=== PATIENT | female | born 1995 | race American Indian/Alaskan Native ===

== ENCOUNTER 2018-02-28 11:41 | Outpatient (CLI) | payer MEDICAID ==
[2018-02-28 13:52] VITALS: BP 121/78
== END 2018-02-28 13:35 | disposition home or self-care (01) ==
LOC: TRG 11:41
PROVIDERS: ATTEND Obstetrics & Gynecology
DX: O47.03 False labor before 37 completed weeks of gestation, third trimester (principal); Z3A.37 37 weeks gestation of pregnancy
CPT/HCPCS: 59025

== ENCOUNTER 2018-02-28 22:59 | Outpatient (CLI) | payer MEDICAID ==
[2018-02-28 23:20] VITALS: BP 122/79
== END 2018-03-01 00:30 | disposition home or self-care (01) ==
LOC: TRG 22:59
PROVIDERS: ATTEND Obstetrics & Gynecology
DX: O47.1 False labor at or after 37 completed weeks of gestation (principal); Z3A.38 38 weeks gestation of pregnancy

== ENCOUNTER 2018-03-11 04:38 | Inpatient (IN) | payer MEDICAID ==
--- NOTE | 2018-03-11 08:17 | Ultrasound Report ---
ULTRASOUND BIOPHYSICAL PROFILE: History: Leaking fluid Technique: Transabdominal ultrasound with Doppler interrogation. 2 - breathing movements 2 - movements 2 - posture and tone 2 - Qualitative amniotic fluid volume 8 - TOTAL SCORE OF POSSIBLE 8 Heart Rate (bpm) 144
--- NOTE | 2018-03-11 08:18 | Ultrasound Report ---
ULTRASOUND OB LIMITED History: Leaking fluid Technique: Transabdominal ultrasound with Doppler interrogation. Gestation: Single Position: Cephalic Amniotic Fluid: Decreased LUIS MANUEL = 5.4 cm Heart Rate: 144 BPM
[2018-03-11] MEDS ORDERED: LACTATED RINGERS 1,000 ML ONE (09:54)
[2018-03-11] MEDS ORDERED: PHENERGAN PO PRN ×2 (10:03→23:34)
[2018-03-11] MEDS ORDERED: BRETHINE IVP PRN (10:03)
[2018-03-11] MEDS ORDERED: ZOFRAN IV PRN ×2 (10:03→23:34)
[2018-03-11] MEDS ORDERED: SUBLIMAZE IV PRN (10:03)
[2018-03-11] MEDS ORDERED: STADOL IV PRN (10:03)
[2018-03-11] MEDS ORDERED: NARCAN 0.4 MG/1 ML IV PRN (10:03)
[2018-03-11] MEDS ORDERED: XYLOCAINE 2% INFILTRATI ONE (10:03)
[2018-03-11] MEDS ORDERED: BRETHINE SUB-Q PRN (10:03)
[2018-03-11] MEDS ORDERED: MINERAL OIL PO PRN (10:03)
[2018-03-11 10:37] LABS: Hematocrit 31.5 % (30.3-42.9); Hemoglobin 10.1 gm/dl (10.1-14.3); Mean Corpuscular HGB Conc 32 % (30-34); Mean Corpuscular Volume 80 fl (79-97); Platelet Count 322 K/mm3 (140-440); Red Blood Count 3.93 M/mm3 (3.65-5.03); Red Cell Distribution Width 14.1 % (13.2-15.2)
[2018-03-11 10:41] LABS: Mean Corpuscular Hemoglobin 26 pg (28-32)
[2018-03-11] MEDS ORDERED: PITOCin/NS 20 UNIT/1000ML DRIP 20 UNITS/1,000 ML BAG IV SCH ×2 (11:00→23:45)
[2018-03-11] MEDS ORDERED: PITOCin/NS 30 UNIT/500ML 30 UNITS/500 ML BAG IV SCH ×2 (11:00)
[2018-03-11] MEDS ORDERED: LACTATED RINGERS 1,000 ML IV SCH (11:00)
--- NOTE | 2018-03-11 11:56 | History and Physical Report ---
History of Present Illness Date of examination: 03/11/18 Date of admission: 03/11/18 04:39 Chief complaint: I broke my water History of present illness: THis is a 22 yo transfer to [facility] at 31 weeks here for leaking of fluid. Christin had US showing LUIS MANUEL . Patient started julai and changed cervix from 1 to 3cm. Admit to labor and delivery for augmentation. SHe has iron deficient anemia on iron. GBS neg Past History Past Medical History: no pertinent history Past Surgical History: no surgical history Family/Genetic History: none - Obstetrical History Expected Date of Delivery: 03/15/18 Actual Gestation: 39 Week(s) 3 Day(s) : 0 Para: 0 Hx # Term Pregnancies: 0 Number of Pregnancies: 0 Spontaneous Abortions: 0 Induced : 0 Number of Living Children: 0 Medications and Allergies Allergies Allergy/AdvReac Type Severity Reaction Status Date / Time No Known Allergies Allergy Unverified 02/28/18 13:38 Home Medications Medication Instructions Recorded Confirmed Last Taken Type Ferrous Sulfate [Iron] 325 mg PO BID 02/28/18 02/28/18 1 Day Ago History ~02/27/18 Active Meds: Active Medications Butorphanol Tartrate (Stadol) 2 mg IV Q2H PRN PRN Reason: Pain , Severe (7-10) Ephedrine Sulfate (Ephedrine Sulfate) 10 mg IV Q2M PRN PRN Reason: Hypotension Fentanyl (Sublimaze) 100 mcg IV Q2H PRN PRN Reason: Labor Pain Lactated Ringer's (Lactated Ringers) 1,000 mls @ 125 mls/hr IV DIRECT JOE Oxytocin/Sodium Chloride (Pitocin/Ns 20 Unit/1000ml Drip) 20 units in 1,000 mls @ 125 mls/hr IV DIRECT JOE Oxytocin/Sodium Chloride (Pitocin/Ns 30 Unit/500ml) 30 units in 500 mls @ 1 mls /hr IV TITR JOE; Protocol Oxytocin/Sodium Chloride (Pitocin/Ns 30 Unit/500ml) 30 units in 500 mls @ 0 mls /hr IV TITR JOE; Protocol Mineral Oil (Mineral Oil) 30 ml PO QHS PRN PRN Reason: Constipation Naloxone HCl (Narcan 0.4 Mg/1 Ml) 0.1 mg IV Q2MIN PRN PRN Reason: Res Rate </= 8 or 02 SAT < 92% Ondansetron HCl (Zofran) 4 mg IV Q8H PRN PRN Reason: Nausea And Vomiting Promethazine HCl (Phenergan) 25 mg PO Q6H PRN PRN Reason: Nausea And Vomiting Terbutaline Sulfate (Brethine) 0.25 mg SUB-Q ONCE PRN PRN Reason: Hyperstimulation/Hypertonicity Terbutaline Sulfate (Brethine) 0.25 mg IVP ONCE PRN PRN Reason: Hyperstimulation/Hypertonicity Review of Systems All systems: negative - Vital Signs Vital signs: Vital Signs Temp Pulse Resp BP 98.7 F 103 H 18 123/82 03/11/18 05:38 03/11/18 05:38 03/11/18 05:38 03/11/18 05:38 Temp Pulse Resp BP Pulse Ox 98.1 F 103 H 18 106/70 03/11/18 09:21 03/11/18 09:21 03/11/18 09:21 03/11/18 09:21 - Physical Exam Breasts: Positive: normal Cardiovascular: Regular rate, Normal S1 Lungs: Positive: Clear to auscultation, Normal air movement Abdomen: Positive: normal appearance, soft, normal bowel sounds. Negative: distention, tenderness, guarding Genitourinary (Female): Positive: normal external genitalia, normal perenium Vulva: both: normal Uterus: Positive: normal size Anus/Rectum: Positive: normal perianal skin Extremities: Positive: normal Deep Tendon Reflex Grade: Normal +2 - Obstetrical FHR: category 1 Cervical Dilatation: 3 Cervical Effacement Percentage: 50 station: -3 Results Result Diagrams: 03/11/18 09:30 Abnormal lab results 03/11/18 Range/Units 09:30 WBC 14.5 H (4.5-11.0) K/mm3 MCH 26 L (28-32) pg All other labs normal. Assessment and Plan A/P HD 1 Term IUP 39+ weeks SROM clear augment with pitocin GBS neg expect vaginal delivery
--- NOTE | 2018-03-11 13:25 | Event Note ---
Date: 03/11/18 Patient doing well Feeling ctx NST reactive cat 1 /-2 continue high dose pitocin wait epidural continue present mgt
[2018-03-11] MEDS ORDERED: NARCAN 2 MG/2 ML IV PRN (14:39)
--- NOTE | 2018-03-11 14:39 | Anesthesia Consultation ---
Anesthesia Consult and Med Hx Date of service: 03/11/18 - Airway Anesthetic Teeth Evaluation: Good ROM Head & Neck: Adequate Mental/Hyoid Distance: Adequate Mallampati Class: Class II Intubation Access Assessment: Probably Good - Pre-Operative Health Status ASA Pre-Surgery Classification: ASA2 Proposed Anesthetic Plan: Epidural, Spinal - Pulmonary Hx Asthma: No COPD: No Hx Pneumonia: No - Cardiovascular System Hx Hypertension: No - Central Nervous System Hx Seizures: No Hx Psychiatric Problems: No - Endocrine Hx Renal Disease: No Hx End Stage Renal Disease: No Hx Hypothyroidism: No Hx Hyperthyroidism: No - Hematic Hx Anemia: No Hx Sickle Cell Disease: No - Other Systems Hx Alcohol Use: No
[2018-03-11] MEDS ORDERED: fentaNYL-BUPIV 2 MCG/ML-0.125% 200 MCG/100 ML BAG EPIDURAL SCH (15:00)
--- NOTE | 2018-03-11 16:57 | Event Note ---
Date: 03/11/18 patient is s/p epidural patient doing well and comfortable NST cat 1 SVE: /-1 A/P Active labor GBS neg s/p epidural continue pitocin for augmentation
[2018-03-11] MEDS ORDERED: WATER FOR INJ (PF) 10 ML ONE (18:31)
[2018-03-11] MEDS ORDERED: MARCAINE 0.5% INFILTRATI ONE (18:31)
[2018-03-11] MEDS: GARAMYCIN/NS 80 MG/100 ML 100 ML IV SCH (22:45)
[2018-03-11] MEDS ORDERED: GARAMYCIN/NS 80 MG/100 ML 100 ML IV ONE (22:50)
[2018-03-11] MEDS ORDERED: POLYCILLIN/NS 2 GM/100 ML 2 GM/100 ML BAG IV SCH (23:00)
[2018-03-11] MEDS ORDERED: XYLOCAINE MPF 2% ONE (23:11)
[2018-03-11] MEDS ORDERED: CYTOTEC ONE (23:15)
[2018-03-11] MEDS ORDERED: PERCOCET 5/325 PO PRN (23:34)
[2018-03-11] MEDS ORDERED: LANSINOH TP PRN (23:34)
[2018-03-11] MEDS ORDERED: MILK OF MAGNESIA PO PRN (23:34)
[2018-03-11] MEDS ORDERED: PHENERGAN PR PRN (23:34)
[2018-03-11] MEDS ORDERED: TUCKS PAD TP PRN (23:34)
[2018-03-11] MEDS ORDERED: DULCOLAX PR PRN (23:34)
[2018-03-11] MEDS ORDERED: TYLENOL PO PRN (23:34)
[2018-03-11] MEDS ORDERED: NORCO 5/325 PO PRN (23:34)
[2018-03-11] MEDS ORDERED: CYTOTEC PR ONE (23:34)
[2018-03-11] MEDS ORDERED: BENADRYL PO PRN (23:34)
--- NOTE | 2018-03-11 23:34 | Procedure Note ---
OB Delivery Note - Delivery Date of Delivery: 03/11/18 Surgeon: MASOUD NETTLES Estimated blood loss: other (600cc) - Vaginal Delivery presentation: vertex Delivery position: OA Intrapartum events: febrile- temp >100.3, meconium Delivery induction: none Delivery augmentation: rupture of membranes, pitocin Delivery monitor: internal FHT, internal uterine Route of delivery: Delivery placenta: spontaneous Delivery cord: 3 umbilical vessels Episiotomy: none Delivery laceration: 2nd degree Delivery repair: vicryl Anesthesia: local, epidural Delivery comments: Patient was noted to be tachy and temp 101 so patient was started on Amp and Gent. patient was noted to be anterior lip. i was able to reduce lip and proceeded to pushing a viable female infant at 2305 with Apgars 8 and 9. Weight of the baby was 8 pounds 4 ounces. The cord was clamped and cut and placenta delivered intact with 3 vessel cord at 2310. Patient sustained a 2nd degree laceration repaired in usual fashion with 2-0 vicryl. Cytotec 1000 ug of cytotec for PP hemorrhage of 600 cc. Patient tolerated procedure well and bonding with baby. - Infant A at 1 minute: 8 at 5 minutes: 9 Gender: Female
[2018-03-11] MEDS ORDERED: SODIUM CHLORIDE FLUSH SYRINGE 10 ML IV PRN (23:45)
[2018-03-12] MEDS: MOTRIN PO SCH ×3 (00:22→20:04)
[2018-03-12] MEDS: CLEOCIN 900 MG/50 mL 900 MG/50 ML BAG IV SCH ×3 (00:48→22:18)
[2018-03-12] MEDS ORDERED: NACL 0.9% 1000 ML 1,000 ML IV SCH (05:00)
[2018-03-12] MEDS: POLYCILLIN/NS 2 GM/100 ML 2 GM/100 ML BAG IV SCH ×3 (05:00→17:00)
[2018-03-12] MEDS: GARAMYCIN/NS 80 MG/100 ML 100 ML IV SCH ×3 (05:55→23:52)
[2018-03-12] MEDS: COLACE PO SCH (10:10)
[2018-03-12] MEDS: PRENATAL VITAMIN PO SCH (10:11)
[2018-03-12] MEDS: SENOKOT S PO SCH (10:15)
--- NOTE | 2018-03-12 12:48 | Progress Note ---
Assessment and Plan - Patient Problems (1) Spontaneous vaginal delivery Current Visit: Yes Status: Acute Plan to address problem: Routine care Subjective - Subjective Date of service: 03/12/18 Interval history: Patient without complaints. She is tolerating a regular diet without complication. Patient reports: appetite normal, voiding normally, pain well controlled Objective - Vital Signs Latest vital signs: Vital Signs Temp Pulse Resp BP BP Pulse Ox 03/12/18 07:43 98.4 F 94 H 20 114/72 96 03/12/18 05:26 98.1 F 104 H 18 114/63 03/12/18 01:25 100.9 F H 98 H 20 123/81 98 03/12/18 01:00 99.8 F H 20 03/12/18 00:54 117 H 97 03/12/18 00:49 116 H 97 03/12/18 00:47 142 H 97/54 03/11/18 23:44 120 H 99 03/11/18 23:42 121 H 133/85 03/11/18 23:26 126 H 121/60 03/11/18 23:13 151 H 129/58 03/11/18 23:02 155 H 92 03/11/18 22:57 59 L 88 03/11/18 22:56 96 H 87 03/11/18 22:52 140 H 98 03/11/18 22:47 102 H 97 03/11/18 22:42 121 H 136/68 99 03/11/18 22:37 112 H 99 03/11/18 22:33 116 H 94 03/11/18 22:32 122 H 95 03/11/18 22:28 118 H 109/63 03/11/18 22:27 117 H 99 03/11/18 22:22 118 H 99 03/11/18 22:20 101.0 F H 16 03/11/18 22:17 120 H 99 03/11/18 22:12 127 H 115/71 100 03/11/18 22:07 115 H 99 03/11/18 22:02 135 H 100 03/11/18 21:57 124 H 99 03/11/18 21:56 123 H 116/74 03/11/18 21:52 119 H 99 03/11/18 21:46 111 H 98 03/11/18 21:42 99 H 145/92 93 09/17/18 21:41 104 H 98 18 21:36 108 H 99 03/11/18 21:35 98.9 F 18 03/11/18 21:31 116 H 149/90 18 21:30 106 H 99 03/11/18 21:25 121 H 99 18 21:24 123 H 116/70 03/11/18 21:22 114 H 119/73 18 21:20 100 H 123/77 99 18 21:18 104 H 134/86 18 21:16 122 H 130/71 18 21:15 120 H 99 17/18 21:14 122 H 149/73 18 21:12 111 H 142/85 18 21:10 96 H 150/79 98 18 21:08 91 H 148/90 18 21:06 93 H 159/105 03/11/18 21:05 98 H 97 18 21:04 97 H 161/88 18 21:02 111 H 146/71 18 21:00 86 136/80 98 03/11/18 20:58 93 H 166/92 03/11/18 20:56 89 143/84 18 20:55 100 H 98 03/11/18 20:54 91 H 150/88 18 20:52 101 H 145/80 03/11/18 20:50 100 H 137/77 98 18 20:48 107 H 147/74 18 20:46 103 H 150/76 03/11/18 20:45 101 H 99 03/11/18 20:44 108 H 148/73 18 20:42 110 H 117/59 03/11/18 20:40 103 H 146/83 99 17/18 20:38 100 H 146/79 17/18 20:36 95 H 145/79 17/18 20:35 103 H 99 17/18 20:34 115 H 146/75 17/18 20:32 96 H 134/74 17/18 20:30 97 H 145/77 98 17/18 20:28 98 H 146/75 17/18 20:26 106 H 143/77 17/18 20:25 110 H 99 17/18 20:24 110 H 133/71 17/18 20:22 98 H 147/70 17/18 20:20 104 H 153/78 100 17/18 20:18 115 H 127/76 17/18 20:16 106 H 134/92 17/18 20:15 112 H 99 17/18 20:14 111 H 131/95 17/18 20:12 93 H 134/95 17/18 20:10 110 H 125/76 99 17/18 20:08 93 H 137/81 17/18 20:06 95 H 138/79 17/18 20:05 110 H 99 17/18 20:04 109 H 129/74 17/18 20:02 94 H 134/77 17/18 20:00 92 H 148/85 17/18 19:58 98 H 150/87 17/18 19:56 101 H 134/76 17/18 19:55 90 98 17/18 19:54 94 H 149/89 17/18 19:52 88 141/86 17/18 19:50 96 H 135/86 97 17/18 19:48 92 H 131/84 17/18 19:46 89 140/86 17/18 19:45 92 H 99 17/18 19:44 96 H 136/85 17/18 19:42 109 H 129/81 17/18 19:40 102 H 129/79 99 17/18 19:38 100 H 135/83 17/18 19:36 112 H 127/69 17/18 19:35 118 H 98 17/18 19:34 115 H 124/72 17/18 19:32 113 H 118/78 17/18 19:30 113 H 117/71 98 17/18 19:25 115 H 99 17/18 19:24 112 H 115/68 17/18 19:22 127 H 111/63 17/18 19:20 132 H 98 09/17/18 19:18 126 H 115/69 09/17/18 19:16 116 H 124/73 09/17/18 19:15 127 H 99 09/17/18 19:14 123/64 0917/18 19:12 120 H 116/59 09/17/18 19:10 114 H 124/67 99 09/17/18 19:05 131 H 100 09/17/18 19:01 126 H 124/70 0917/18 19:00 122 H 99 0917/18 18:55 100 H 98 0917/18 18:50 113 H 99 17/18 18:46 111 H 129/79 0917/18 18:45 110 H 98 0917/18 18:40 98 H 99 0917/18 18:35 91 H 98 0917/18 18:30 92 H 99 0917/18 18:25 102 H 99 0917/18 18:20 124 H 100 0917/18 18:16 92 H 147/81 17/18 18:15 119 H 99 0917/18 18:10 95 H 99 0917/18 18:05 93 H 100 0917/18 18:01 100 H 138/90 0917/18 18:00 105 H 100 0917/18 17:55 106 H 99 0917/18 17:50 100 H 100 0917/18 17:46 94 H 134/82 0917/18 17:45 96 H 98 09/17/18 17:40 106 H 99 0917/18 17:35 101 H 99 0917/18 17:31 87 136/82 0917/18 17:30 87 99 09/17/18 17:25 104 H 99 09/17/18 17:20 89 98 09/17/18 17:16 86 135/82 09/17/18 17:15 87 99 09/17/18 17:10 94 H 98 09/17/18 17:05 91 H 99 0917/18 17:01 108 H 133/81 0917/18 17:00 111 H 99 09/17/18 16:55 98 H 100 09/17/18 16:50 93 H 100 0917/18 16:47 88 131/82 0917/18 16:45 101 H 99 09/17/18 16:40 103 H 98 18 16:35 96 H 99 18 16:31 83 138/83 18 16:30 89 99 18 16:25 81 99 18 16:20 86 99 18 16:16 80 130/77 18 16:15 85 99 18 16:10 84 99 18 16:05 88 98 18 16:01 83 124/85 18 16:00 107 H 97 18 15:57 86 124/83 18 15:55 88 99 18 15:50 84 99 18 15:45 93 H 99 18 15:40 106 H 99 18 15:35 93 H 99 18 15:30 98 H 98 18 15:25 93 H 98 03/11/18 15:20 86 99 18 15:15 98 H 98 18 15:10 101 H 99 18 15:05 89 99 18 15:00 91 H 98 18 14:55 107 H 98 03/11/18 14:50 110 H 98 03/11/18 14:45 114 H 98 Intake and Output 03/11/18 03/12/18 03/12/18 22:59 06:59 14:59 Intake Total 109 258.4 Output Total 900 1300 Balance -791 -1041.6 Intake: IV 109 18.4 PITOCin/NS 30 UNIT/500ML 109 18.4 30 units In 500 ml @ 1 MILLIUNITS/MIN 1 mls/hr IV TITR JOE Rx#:[id number] Intake, Free Water 240 Output: Urine 900 1300 Indwelling Catheter 900 400 Void 900 Other: Total, Output Amount 900 400 Estimated Blood Loss 600 - Exam Uterus: Present: normal, firm
--- NOTE | 2018-03-12 12:49 | Discharge Summary ---
Providers - Providers Date of Admission: 03/11/18 04:39 Date of discharge: 03/13/18 Attending physician: SHEELA FIELDS Primary care physician: SHEELA FIELDS Hospitalization Reason for admission: active labor, rupture of membranes Delivery: Discharge diagnosis: IUP at term delivered Hospital course: The patient was admitted with a complaint of leakage of fluid. The patient subsequently had a spontaneous vaginal delivery. course is uncomplicated. Condition at discharge: Good Disposition: DC-01 TO HOME OR SELFCARE - Discharge Diagnoses (1) Spontaneous vaginal delivery Status: Acute Plan - Discharge Medications Prescriptions: Ferrous Sulfate 325 mg PO BID #60 tablet. Ibuprofen [Motrin] 600 mg PO Q8H PRN #30 tablet PRN Reason: Pain oxyCODONE /ACETAMINOPHEN [Percocet 5/325] 1 tab PO Q6HR PRN #30 tablet PRN Reason: Pain - Provider Discharge Summary Activity: no sex for 6 weeks, no heavy lifting 4 weeks, no strenuous exercise Diet: routine Instructions: routine Additional instructions: [] Smoking cessation referral if applicable(refer to patient education folder for contact #) [] Refer to [facility] Booklet Call your doctor immediately for: * Fever > 100.5 * Heavy vaginal bleeding ( >1 pad per hour) * Severe persistent headache * Shortness of breath * Reddened, hot, painful area to leg or breast * Scheduled visit in 4 weeks - Follow up plan
[2018-03-12 12:51] LABS: Hematocrit 26.6 % (30.3-42.9); Hemoglobin 8.6 gm/dl (10.1-14.3)
[2018-03-12] MEDS ORDERED: M-M-R II VACCINE SUB-Q ONE (23:34)
[2018-03-13] MEDS ORDERED: BOOSTRIX IM ONE (06:00)
[2018-03-13] MEDS: SENOKOT S PO SCH (11:57)
[2018-03-13] MEDS: MOTRIN PO SCH (11:57)
[2018-03-13] MEDS: COLACE PO SCH (11:58)
[2018-03-13] MEDS: PRENATAL VITAMIN PO SCH (11:58)
[2018-03-13 18:10] VITALS: BP 118/74
== END 2018-03-13 19:20 | disposition home or self-care (01) | DRG 774 ==
LOC: TRG 04:38 → LD 04:39 → TRG 08:10 → OB 03-12 01:13
PROVIDERS: ADMIT Obstetrics & Gynecology; ATTEND Obstetrics & Gynecology
PROC: 10E0XZZ Delivery of Products of Conception, External Approach (ICD-10-PCS; principal; 2018-03-11)
PROC: 3E0R3BZ Introduction of Anesthetic Agent into Spinal Canal, Percutaneous Approach (ICD-10-PCS; 2018-03-11)
PROC: 00HU33Z Insertion of Infusion Device into Spinal Canal, Percutaneous Approach (ICD-10-PCS; 2018-03-11)
PROC: 0KQM0ZZ Repair Perineum Muscle, Open Approach (ICD-10-PCS; 2018-03-11)
DX: O70.1 Second degree perineal laceration during delivery (principal); Z37.0 Single live birth; O72.1 Other immediate postpartum hemorrhage; O77.0 Labor and delivery complicated by meconium in amniotic fluid; Z3A.39 39 weeks gestation of pregnancy; Z79.899 Other long term (current) drug therapy
CPT/HCPCS: 36415; 59025; 76815; 76819; 85014; 85018; 85027; 86592; 86850; 86900; 86901; 87040; 87086; 88307; 99211; A6250; G0463; J0290; J1580; J2590; J3010; J7030; J7120